=== PATIENT | female | born 2005 | race African-American/Black ===

== ENCOUNTER 2024-09-12 15:56 | Emergency (ER) | payer OTHER ==
[~2024-09-12] VITALS: Ht 165.1 cm; Wt 70.0 kg
[2024-09-12 16:26] VITALS: O2SAT 100
[2024-09-12] MEDS ORDERED: IRON15TA3 MT (18:04)
[2024-09-12] MEDS ORDERED: TOPUD MT (18:04)
[2024-09-12] MEDS: ACETAMINOPHEN 500MG TABLET PO ONE (19:16)
[2024-09-12 19:18] VITALS: BP 122/84; PULSE 88; RESP 18; TEMP 36.89184; O2SAT 100
== END 2024-09-12 19:20 | disposition home or self-care (01) ==
LOC: ER 15:56
DX: B34.9 Viral infection, unspecified (principal); J45.909 Unspecified asthma, uncomplicated
CPT/HCPCS: 99282